=== PATIENT | male | born 1980 | race Caucasian/White ===

== ENCOUNTER → 2017-02-26 | Outpatient (CLI) | payer BC | LOC: KOH-I 16:23 | DX: M25.512 Pain in left shoulder (principal) | CPT/HCPCS: 73000 ==

== ENCOUNTER → 2017-03-14 | Outpatient (CLI) | payer BC | LOC: KOH-I 12:42 | DX: R19.04 Left lower quadrant abdominal swelling, mass and lump (principal); R93.8 Abnormal findings on diagnostic imaging of other specified body structures | CPT/HCPCS: 76881 ==

== ENCOUNTER → 2022-02-22 | Outpatient (CLI) | payer OTHER ==
[~2022-02-22] MED LIST: CELEXA40 MG PO; ROBAXIN 750 MG750 MG PO; SINGULAIR10 MG PO; ZOCOR40 MG PO
== END ==
LOC: KOH-I 15:20
DX: M25.531 Pain in right wrist (principal)
CPT/HCPCS: 73110